=== PATIENT | female | born 1950 | race Caucasian/White ===

== ENCOUNTER 2025-02-12 22:59 | Emergency (ER) | payer BC ==
[2025-02-12] MEDS ORDERED: HYDROcodone/Acetaminophen 10/325 mg Tablet ONE (23:18)
[2025-02-13 00:26] LABS: #Basophils 0.05 10x3/uL (0.0-0.2); #Eosinophils 0.28 10x3/uL (0.0-0.5); #Monocytes 0.79 10x3/uL (0.0-1.1); #Neutrophils 6.44 10x3/uL (1.5-8.4); %Basophils 0.5 % (0.0-2.0); %Eosinophils 2.8 % (0.0-6.0); %Lymphocytes 23.1 % (18.0-47.0); %Monocytes 8.0 % (0.0-10.0); %Neutrophils 65.3 % (40.0-75.0); Hematocrit 42.7 % (34.9-44.5); Hemoglobin 13.9 g/dL (12.0-15.5); Mean Corpuscular Hemoglobin 28.9 pg (27.0-33.0); Mean Corpuscular Volume 88.8 fL (81.6-98.3); Platelet Count 279 10x3/uL (150-450); Red Blood Cell (RBC) Count 4.81 10x6/uL (3.90-5.03); White Blood Cell (WBC) Count 9.87 10x3/uL (3.5-10.5)
[2025-02-13 00:41] LABS: Anion Gap 14 mmol/L (10-20); BUN (Urea Nitrogen) 29 mg/dL (9.8-20.1); Calc. Creatinine Clearance 0 mL/min (70-130); Calcium 8.9 mg/dL (7.8-10.44); Carbon Dioxide 21 mmol/L (23-31); Chloride 108 mmol/L (98-107); Glucose 99 mg/dL (83-110); Potassium 4.0 mmol/L (3.5-5.1); Sodium 139 mmol/L (136-145)
== END 2025-02-13 01:43 | disposition home or self-care (01) ==
LOC: CSHERS 22:59
DX: S82.891A Other fracture of right lower leg, initial encounter for closed fracture (principal); S82.401A Unspecified fracture of shaft of right fibula, initial encounter for closed fracture; W18.30XA Fall on same level, unspecified, initial encounter
CPT/HCPCS: 80048; 85025; 96374; 96375; J3010